=== PATIENT | male | born 1940 | race African-American/Black ===

== ENCOUNTER 2020-09-18 13:50 | Emergency (ER) | payer MEDICARE, MEDICAID ==
[~2020-09-18] VITALS: Ht 180 cm; Wt 100.0 kg
--- NOTE | 2020-09-18 14:19 | ED General ---
General Chief Complaint: Trauma-Non Activation Stated Complaint: FALL Source of Information: Patient Exam Limitations: No Limitations History of Present Illness Date Seen by Provider: Sep 18, 2020 Time Seen by Provider: 14:20 Initial Comments 76-year-old male presents via EMS with complaint of a fall. New resident to alf and has dementia as well as movement disorder. Stated to fallen from his bed and hit piece of furniture the right side of his head and seemed dazed right afterward. On EMS arrival he was awake and alert and in no distress with normal vital signs. Patient unable to give history or answer questions for review of systems. Allergies and Home Medications Patient Home Medication List Home Medication List Reviewed: Yes Review of Systems Review of Systems Constitutional: no symptoms reported (unable to obtain due to mental status) Past Jcgztaa-Mwpgdg-Hnrerd Hx Past Med/Social Hx: Reviewed Nursing Past Med/Soc Hx Patient Social History Alcohol Use: Denies Use Smoking Status: Never a Smoker Recent Hopitalizations: No Immunizations Up To Date Tetanus Booster (TDap): Less than 5yrs PED Vaccines UTD: No Date of Pneumonia Vaccine: Apr 30, 2015 Past Medical History Surgeries: No Respiratory: No Cardiac: Yes Coronary Artery Disease, Heart Attack, High Cholesterol, Hypertension Neurological: Yes Dementia, Seizure Disorder, Traumatic Brain Injury Genitourinary: No Renal Failure Gastrointestinal: No Musculoskeletal: Yes (OSTEOARTHRITIS) Degenerate Disk Disease, Chronic Back Pain, Spasms Endocrine: No HEENT: No Cancer: No Psychosocial: Yes Violent Behavior Integumentary: No Blood Disorders: Yes (ANEMIA) Physical Exam Vital Signs Vital Signs - First Documented 09/18/20 14:31 Temp 35.9 Pulse 69 Resp 15 B/P (MAP) 105/71 (82) Pulse Ox 98 O2 Delivery Room Air Capillary Refill : Height, Weight, BMI Height: '" Weight: lbs. oz. kg; BMI Method: General Appearance: No Apparent Distress, WD/WN Eyes: Bilateral Eye Normal Inspection, Bilateral Eye PERRL, Bilateral Eye EOMI HEENT: PERRL/EOMI, Normal ENT Inspection, Other (small contusion - R parietal) Neck: Full Range of Motion, Non Tender Respiratory: Chest Non Tender, Lungs Clear, Normal Breath Sounds Cardiovascular: Regular Rate, Rhythm, No Edema, No JVD Gastrointestinal: Non Tender, Soft Back: No CVA Tenderness, No Vertebral Tenderness Extremity: Normal Capillary Refill, Normal Inspection, Normal Range of Motion, Non Tender, No Calf Tenderness Neurologic/Psychiatric: Alert, Other (chronic tremors and ataxia) Skin: Normal Color, Warm/Dry Progress/Results/Core Measures Suspected Sepsis SIRS Temperature: Pulse: Respiratory Rate: Blood Pressure / Mean: Results/Orders My Orders Orders - RIOS DELACRUZ DO Ct Head Wo (09/18/20 14:03) Vital Signs/I&O 09/18/20 14:31 Temp 35.9 Pulse 69 Resp 15 B/P (MAP) 105/71 (82) Pulse Ox 98 O2 Delivery Room Air Capillary Refill : Diagnostic Imaging Diagonstic Imaging: CT Plain Films/CT/US/NM/MRI: head Comments COMPARISON: There is no prior study for comparison. FINDINGS: There are diffuse atrophic changes. There are patchy low-density changes throughout the deep white matter, compatible with chronic ischemic change of moderate severity. There is no acute hemorrhage, mass effect, or acute intraparenchymal abnormality. The calvarial windows show no fracture. The visualized portions of the sinuses are unremarkable. IMPRESSION: No acute intracranial abnormality. Atrophy and moderate chronic ischemic changes in the deep white matter. Dictated on workstation # [id number] Dict: 09/18/20 1431 Trans: 09/18/20 1435 [id number] Interpreted by: JEANNIE SALVADOR MD Electronically signed by: Departure Impression Primary Impression: Fall Qualified Codes: W19.XXXA - Unspecified fall, initial encounter Additional Impression: Head contusion Qualified Codes: S00.93XA - Contusion of unspecified part of head, initial encounter Disposition: HOME, SELF-CARE (back to [facility]) Condition: Stable Departure-Patient Inst. Decision time for Depature: 14:26 Patient Instructions: Minor Head Injury, Adult ED Add. Discharge Instructions: REcommend re-evaluation by your primary medical provider in 3 to 5 days. Return to the ER for any significant changes in status All discharge instructions reviewed with patient and/or family. Voiced understanding. RIOS DELACRUZ DO Sep 18, 2020 14:19
[2020-09-18 14:31] VITALS: BP 105/71
--- NOTE | 2020-09-18 14:35 | Diagnostic Imaging Report ---
INDICATION: Fall with altered mental status. TECHNIQUE: Multiple contiguous axial images were obtained through the brain without the use of intravenous contrast. Auto Exposure Controls were utilized during the CT exam to meet ALARA standards for radiation dose reduction. COMPARISON: There is no prior study for comparison. FINDINGS: There are diffuse atrophic changes. There are patchy low-density changes throughout the deep white matter, compatible with chronic ischemic change of moderate severity. There is no acute hemorrhage, mass effect, or acute intraparenchymal abnormality. The calvarial windows show no fracture. The visualized portions of the sinuses are unremarkable. IMPRESSION: No acute intracranial abnormality. Atrophy and moderate chronic ischemic changes in the deep white matter. Dictated by: Dictated on workstation # [id number]
== END 2020-09-18 15:39 | disposition home or self-care (01) ==
LOC: EDBD 13:53 → ER FS 13:53
DX: S00.83XA Contusion of other part of head, initial encounter (principal); I10 Essential (primary) hypertension; F03.90 Unspecified dementia, unspecified severity, without behavioral disturbance, psychotic disturbance, mood disturbance, and anxiety; Z87.820 Personal history of traumatic brain injury; W06.XXXA Fall from bed, initial encounter; W22.8XXA Striking against or struck by other objects, initial encounter; Y92.122 Bedroom in nursing home as the place of occurrence of the external cause
CPT/HCPCS: 70450

== ENCOUNTER 2020-11-10 14:03 | Outpatient (RCR) | payer MEDICARE, MEDICAID ==
[2020-11-10 14:13] LABS: BILIRUBIN,URINE NEGATIVE (NEGATIVE); CLARITY,URINE SL CLOUDY; COLOR,URINE YELLOW; GLUCOSE, URINE (UA) NEGATIVE (NEGATIVE); KETONES,URINE NEGATIVE (NEGATIVE); LEUKOCYTE ESTERASE ,URINE 1+ (NEGATIVE); NITRITE,URINE NEGATIVE (NEGATIVE); PROTEIN,URINE NEGATIVE (NEGATIVE)
[2020-11-10 14:30] LABS: BACTERIA,URINE LARGE /HPF; TRIPLE PHOSPHATE CRYSTAL,UR MODERATE /LPF; WBC,URINE 25-50 /HPF
== END 2021-02-08 | disposition home or self-care (01) ==
LOC: LAB 14:03
PROVIDERS: ATTEND Family Medicine
DX: R82.90 Unspecified abnormal findings in urine (principal)
CPT/HCPCS: 81000; 87077; 87088; 87186

== ENCOUNTER → 2020-12-21 | Outpatient (CLI) | payer MEDICARE, MEDICAID ==
--- NOTE | 2020-12-21 12:24 | Diagnostic Imaging Report ---
Indication: Dysphagia. Procedure was performed in conjunction with speech pathology. Video fluoroscopy was performed during swallowing of barium at multiple consistencies. 2 minutes and 29 seconds of fluoroscopic time utilized. Patient ingested thin as well as nectar, honey, puree as well as mechanical soft consistency. Oral phase is somewhat uncoordinated and demonstrates tongue pumping. There is early spillover with all consistencies. There was laryngeal penetration during swallowing of the thin consistency. There is moderate vallecular residue noted with multiple consistency. Swallowing did appear to be uncoordinated. Impression: Abnormal video swallow, as described. There was an episode of penetration during swallowing of thin barium. No definite aspiration was observed. Dictated by: Dictated on workstation # [id number]
== END ==
LOC: RAD 10:00
PROVIDERS: ATTEND Family Medicine
DX: R13.12 Dysphagia, oropharyngeal phase (principal); N18.30 Chronic kidney disease, stage 3 unspecified
CPT/HCPCS: 74230